=== PATIENT | female | born 1970 | race Caucasian/White ===

== ENCOUNTER 2025-07-27 01:54 | Emergency (ER) | payer OTHER, SELFPAY ==
--- OUTSIDE RECORDS SUMMARY | 2019-07-20 16:57 | XMS_ITS | Encounter Summary ---
Author Organization [facility] Address [address] [place] [address] Care Team Providers Care Almond Sorter Name Role Phone Pcp, No Primary Care Provider Unavailabl e Encounter Details Date Type Department Care Team (Late st Contact Info) Description 07/20/2019 4:57 PM EDT Hospital Encounter [facility] [address] [place] [id number] Amber Diaz APRN [address] [place] [address] Social History Tobacco Use Types Packs/Day Years Used Date Smoking Tobacco: Never Smokeless Tobacco: Never Alcohol Use Standard Drinks/Week Comments Never 0 (1 standard drink = 0.6 oz pur e alcohol) Comments No Sex and Gender Information Value Date Recorded Sex Assigned at Not on file Legal Sex Female 4:29 PM EDT Gender Identity Not on file Sexual Orientation Not on file Occupation Industry Job Start Date Job End Date Nurse Not on file Not on file Not on file COVID-19 Exposure Response Date Recorded In the last 10 days, have yo u been in contact with someone who was confirmed or suspected to have Coronavirus/COVID-19? No / Unsure 02/15/2023 9:24 AM EDT documented as of this encounter Plan of Treatment Not on file documented as of this encounter Procedures Procedure Name Priority Date/Time Associated Diagnosis Comments XR TOE (1ST) 2+ VIEWS-LEFT STAT 07/20/2019 5:03 PM EDT Cellulitis of great toe of left foot documented in this encounter Results * XR Toe (1st) 2+ views-Left (07/20/2019 5:03 PM EDT) Anatomical Region Laterality Modality Foot Left Computed Radiogr aphy 07/20/2019 5:08 PM EDT Impressions 07/20/2019 5:10 PM EDT No acute bony or articular abnormality. Narrative 07/20/2019 5:10 PM EDT COMPARISON(S): None. TECHNIQUE: 3 radiographic views of the left first toe were obtained. FINDINGS: BONES: No fracture. JOINTS: No dislocation. SOFT TISSUES: Punctate calcification medial to the first metatarsal head, likely sequela of prior injury, inflammation, or intervention. Procedure Note Benji Tran MD - 07/20/2019 COMPARISON(S): None. TECHNIQUE: 3 radiographic views of the left first toe were obtained. FINDINGS: BONES: No fracture. JOINTS: No dislocation. SOFT TISSUES: Punctate calcification medial to the first metatarsal head,likely sequela of prior injury, inflammation, or intervention. IMPRESSION: No acute bony or articular abnormality. Amber Diaz APRN IMG DIAGNOSTIC IMAGING ORDERAB LES Final Result documented in this encounter Visit Diagnoses Not on filedocumented in this encounter Care Teams Almond Sorter Relationship Specialty Start Date End Date Pcp, No PCP - General General Medicine 07/20/19 02/14/23 documented as of this encounter
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
[2025-07-27 01:59] VITALS: BP 138/80; PULSE 78; O2SAT 100
[2025-07-27 02:18] VITALS: BP 166/95; PULSE 73; RESP 16; TEMP 37.1; O2SAT 100; BMI 46.2
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
--- OUTSIDE RECORDS SUMMARY | 2025-07-27 03:22 | XMS_ITS | Clinical Summary ---
Author Organization [facility] Address [address] [place] [address] Care Team Providers Care Airport Location Manager Name Role Phone Eulalia Dela Cruz APRN Primary Care Provider [phone] Allergies Active Allergy Reactions Criticality Noted Date Comments Cephalexin Shortness Of Breath,Itching,Hives High 10/11/2016 Sulfamethoxazole-Trimethopr im Shortness Of Breath,Hives High 10/11/2016 Medications cetirizine (ZyrTEC) 10 MG tablet 3 Active cycloSPORINE (Restasis) 0.05 % ophthalmic emulsion 2 Active fluticasone (FloNASE) 50 mcg/spray nasal spray SHAKE LIQUID AND USE 2 SPRAYS IN EACH NOSTRIL IN THE MORNING 3 Active albuterol (PROVENTIL HFA; VENTOLIN HFA) 108 (90 Base) MCG/ACT inhaler INHALE 2 PUFFS BY MOUTH EVERY 4 HOURS NEEDED FOR WHEEZING OR SHORTNESS OF BREATH 2 Active Coenzyme Q10 (COQ-10 PO) Take by mouth. Act power cyanocobalamin (VITAMIN B-12) 250 MCG tablet Take by mouth. Active Calcium Carbonate-Vit D-Min (Caltrate 600+D Plus Minerals) 600-800 MG-UNIT Chew Tab Chew 1 tablet. 3 Active ascorbic acid (VITAMIN C) 500 MG tablet Take 1 tablet (500 mg total) by mouth daily. Active Glplytqi-Rju-Pj- FA (Pre-Dean Formula) Tab Take by mouth. Ac tive PANTOprazole (PROTONIX) 20 MG tablet Take 2 tablets (40 mg total) by mouth daily. Active MAGNESIUM PO Take by mouth. Ac tive [place]-3 Fatty Acids (OMEGA 3 PO) Take by mouth. 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 90 tablet 1 4 Active traMADol (ULTRAM) 50 MG tabletIndication s:Other chronic pain Take 1 tablet (50 mg total) by mouth 3 times daily (every 8 hours) as needed for severe pain. 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 She is making positive changes under his supervision. 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 CHARLIE on CPAP 01/20/2020 02/15/2023 Chronic pain of both knees 08/29/201902/15 Leg swelling 08/29/2019 02/15/2023 Resolved Problems Problem Noted Date Diagnosed Date Resolved Date Screening for colon cancer 06/03/2020 02/15/2023 0 06/30/2023 Overview (02/15/2023): Added automatically from request for surgery [id number] Added automatically from request for surgery [id number] Family History Medical History Relation Name Comments Diabetes type I Daughter Diabetes Father Cancer, uterine Mother Hypertension Mother Relation Name Status Comments Daughter Alive Father Mother Social History Tobacco Use Types Packs/Day Years Used Date Smoking Tobacco: Never Smokeless Tobacco: Never Tobacco Cessation:Counseling Given: Not Answered Alcohol Use Standard Drinks/Week Comments Never 0 [...] file Not on file Not on file Last Filed Vital Signs Vital Sign Reading Time Taken Comments Blood Pressure 108/71 08/23/2024 11:49 AM EDT Pulse 87 08/23/2024 11:49 AM EDT Temperature 36.1 C (97 F) 06/30/2023 3:38 PM EDT Respiratory Rate 16 08/23/2024 11:49 AM EDT Oxygen Saturation 97% 06/30/2023 3:38 PM EDT Inhaled Oxygen Concentration - - Weight 140 kg (308 lb) 08/23/2024 11:49 AM EDT Height 170.2 cm (5' 7 ) 08/23/2024 11:49 AM EDT Body Mass Index 48.24 08/23/2024 11:49 AM EDT Plan of Treatment Health Maintenance Due Date Last Done Comments Physical 1986 DTaP/Tdap/Td Vaccines (1 - Tdap) 1987 Hepatitis B Vaccines (1 of 3 - 19+ 3-dose series) 1987 Pap Smear (Ages 21-65) 1989 Mammogram 2008 Pneumococcal Vaccines 50+ (1 of 1 - PCV) 2018 Zoster (Shingles) Vaccine (1 of 2) 2018 FIT-Fecal Globin by Immunochemistry to Lab 10/02/2022 10/02/2021 (Previously Completed) Influenza Vaccine 06/13/2025 12/29/2022, , 09/01/2020 COVID-19 Vaccine ( - 2024-2 6 season) 2025 12/24/2021, 01/30/2021, 01/08/2021 HIV Screening Completed 11/15/2021 Hepatitis C Virus Screening Completed 12/14 (Previously Completed) Controlled Substance Agreeme nt Initial and Annual Review Discontinued 02/15/2023 Chronic Controlled Substance User PDMP Review Discontinued 08/23/2024, 08/16/2024, 05/30/2024, Additional history exists Insurance [facility] Care Teams Airport Location Manager Relationship Specialty Start Date End Date Eulalia Dela Cruz APRN [address] [place] [address] PCP - General Internal Medicine 02/15/23
--- OUTSIDE RECORDS SUMMARY | 2025-07-27 03:22 | XMS_ITS | Encounter Summary ---
Author Organization [facility] Address [address] [place] [address] Care Team Providers Care Functional Mental Disability Teacher Name Role Phone Eulalia Dela Cruz APRN Primary Care Provider Reason for Visit * Reason Comments Medication Refill Encounter Details Date Type Department Care Team (Late st Contact Info) Description 05/24/2023 Refill [facility] [address] [place] [address] Eulalia Dela Cruz APRN [address] [place] [address] Chronic pain of both knees (Primary Dx) Social History Tobacco Use Types Packs/Day Years Used Date Smoking Tobacco: Never Smokeless Tobacco: Never Alcohol Use Standard Drinks/Week Comments Never 0 (1 standard drink = 0.6 oz pur e alcohol) Comments Unknown Sex and Gender Information Value Date Recorded Sex Assigned at Not on file Legal Sex Female 4:29 PM EDT Gender Identity Not on file Sexual Orientation Not on file documented as of this encounter Plan of Treatment Not on file documented as of this encounter Visit Diagnoses Diagnosis Chronic pain of both knees- Primary documented in this encounter Care Teams Functional Mental Disability Teacher Relationship Specialty Start Date End Date Eulalia Dela Cruz APRN [address] [place] [address] PCP - General Internal Medicine 02/15/23 documented as of this encounter
--- OUTSIDE RECORDS SUMMARY | 2025-07-27 03:22 | XMS_ITS | Encounter Summary ---
Author Organization [facility] Address [address] [place] [address] Care Team Providers Care Contour Sander Name Role Phone Eulalia Dela Cruz APRN Primary Care Provider [phone] Reason for Visit * Reason Comments Medication Refill Encounter Details Date Type Department Care Team (Late st Contact Info) Description 08/31/2023 Refill [facility] [address] [place] [address] Eulalia Dela Cruz APRN [address] [place] [address] Chronic pain of both knees Social History Tobacco Use Types Packs/Day Years [...] file Not on file Not on file documented as of this encounter Plan of Treatment Not on file documented as of this encounter Visit Diagnoses Diagnosis Chronic pain of both knees documented in this encounter Care Teams Contour Sander Relationship Specialty Start Date End Date Eulalia Dela Cruz APRN [address] [place] [address] PCP - General Internal Medicine 02/15/23 documented as of this encounter
--- OUTSIDE RECORDS SUMMARY | 2025-07-27 03:22 | XMS_ITS | Clinical Summary ---
Author Organization [facility] Address [address] [place] [address] Care Team Providers Care Concrete Form Setter Name Role Phone Eulalia Dela Cruz APRN Primary Care Provider [phone] Allergies Active Allergy Reactions Criticality Noted Date Comments Cephalexin Itching,Shortness Of Breath High 07/20/2019 Sulfamethoxazole-Trimethopr im Shortness Of Breath High 07/20/2019 Medications Medication Sig Dispensed Refills Start Date End Date Status HYDROmorphone (Dilaudid) 4 MG tablet Take 0.5 tablets (2 mg total) by mouth every 4 (four) hours as needed (pain not controlled with Tylenol). 12 tablet 0 07/06/2023 Active acetaminophen (TYLENOL PEDIATRIC) 160 MG/5ML suspension Take 1000mg (31ml) every 8 hours x 5 days; after 5 days, take 1000mg (31ml) every 8 hours as needed for continued discomfort 470 mL 1 07/06/2023 Active ondansetron (Zofran) 4 MG tablet Take 1 tablet (4 mg total) by mouth every 8 (eight) hours as needed for nausea. 20 tablet 0 07/06/2023 Active Calcium Carbonate-Vit D-Min (Calcium 600+D Plus Minerals) 600-400 MG-UNIT CHEW Chew 1 tablet by mouth 2 (two) times a day. 0 Active vitamin B-12 (CYANOCOBALAMIN) 500 MCG tablet Take 1 tablet (500 mcg total) by mouth daily. 0 Active levothyroxine (SYNTHROID) tablet 112 mcg Take 1 tablet (112 mcg total) by mouth daily. 0 Active liothyronine (CYTOMEL) tablet 5 mcgIndications:Take in the morning. Take 1 tablet (5 mcg total) by mouth daily. 0 Active liothyronine (CYTOMEL) tablet 5 mcgIndications:Take in the afternoon Take 0.5 tablets (2.5 mcg total) by mouth daily. 0 Active Pantoprazole Sodium (PROTONIX PO) Take 40 mg by mouth daily. 0 Active Vit-Fe Fumarate-FA ( 19) 29-1 MG CHEW Chew 1 tablet by mouth. 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 CHARLIE on CPAP 01/20/2020 Class 3 severe obesity due t o excess calories without serious comorbidity with body mass index (BMI) of 50.0 to 59.9 in adult 11/07/2019 Chronic pain of both knees 08/29/2019 Leg swelling 08/29/2019 Family History Medical History Relation Name Comments No Sig Med Hx Daughter Diabetes Father Hypertension Father Cancer Mother No Sig Med Hx Sister No Sig Med Hx Son 1 Colon cancer Neg Hx Colon polyps Neg Hx Relation Name Status Comments Brother Alive Daughter Alive Father Mother Alive Sister Alive Son 1 Alive Son 2 Alive Social History Tobacco Use Types Packs/Day Years Used Date Smoking Tobacco: Former Cigarettes Q uit: 08/20/1999 Smokeless Tobacco: Never Tobacco Cessation:Counseling Given: Not Answered Alcohol Use Standard Drinks/Week Comments No 0 (1 standard drink = 0.6 oz pur e alcohol) Sex and Gender Information Value Date Recorded Sex Assigned at Female 09/26/2019 4:50 PM EST Gender Identity Female 09/26/2019 4:50 PM EST Sexual Orientation Not on file Job Start Date Occupation Industry Not on file Not on file Not on file Last Filed Vital Signs Vital Sign Reading Time Taken Comments Blood Pressure 141/72 07/07/2023 3:51 PM EDT Pulse 52 07/07/2023 3:51 PM EDT Temperature 36.9 C (98.5 F) 07/07/2023 3:51 PM EDT Respiratory Rate 18 07/07/2023 3:51 PM EDT Oxygen Saturation 98% 07/07/2023 3:51 PM EDT Inhaled Oxygen Concentration - - Weight 148.9 kg (328 lb 4.8 oz) 03/25/2024 3:54 PM EDT Height 170.2 cm (5' 7 ) 03/25/2024 3:54 PM EDT Body Mass Index 51.42 03/25/2024 3:54 PM EDT Plan of Treatment Health Maintenance Due Date Last Done Comments Depression Screening 1980 Preventative Health Evaluation 1986 Cervical Cancer Screening (Pap Smear) 1989 Colon Cancer Screening (Colonoscopy) 2013 Breast Cancer Screening (Mammogram) 2018 Shingrix-Zoster Vaccine (1 of 2) 2018 BMI Counseling 01/28/2023 01/28/2022, 12/14, 04/21/2020, Additional history exists COVID-19 Vaccine ( season) 2025 12/24/2021, 01/30/2021, 01/08/2021 Influenza Vaccine (#1) 2025 3, 09/01/2020, 09/01/2020 DTap / Tdap / Td (3 - Td or Tdap) 12/29/2032 12/29/2022, 08/01/2012 Pneumococcal Vaccine Aged Out 2009 No long er eligible based on patient's age to complete this topic Hepatitis B Vaccines Completed 02/18/2013, 09/19/2012, 08/23/2012 Hepatitis C Screening Completed 12/29/2022 RSV Ped < 20 months Aged Out No longe r eligible based on patient's age to complete this topic Advance Directives For more information, please contact: [phone] Latest Code Status on File Code Status Date Activated Date Inactivated Comments Code A- Full Code 07/06/2023 10:31 AM 07/08/2023 12:48 A M This code status was ascertained in the following way: discussion with patient . Code Status History Code Status Date Activated Date Inactivated Comments Code A- Full Code 07/06/2023 10:27 AM 07/06/2023 10:31 A M This code status was ascertained in the following way: discussion with patient . Full Code 02/24/2023 9:47 AM 02/24/2023 6:19 PM This code status was ascertained in the following way: discussion with patient . Care Teams Concrete Form Setter Relationship Specialty Start Date End Date Eulalia Dela Cruz APRN [address] [facility] [address] [place] [address] PCP - General Environmental Protection Geologist 06/20/23
--- OUTSIDE RECORDS SUMMARY | 2025-07-27 03:22 | XMS_ITS | Encounter Summary ---
Author Organization [facility] Address [address] [place] [address] Care Team Providers Care Mandrel Puller Name Role Phone Eulalia Dela Cruz APRN Primary Care Provider [phone] Encounter Details Date Type Department Care Team (Late st Contact Info) Description 06/02/[address] [phone] Eulalia Dela Cruz APRN [address] [place] [id number] Social History Tobacco Use Types Packs/Day Years [...] on file documented as of this encounter Miscellaneous Notes * Telephone Encounter - Venita Livingston - 06/02/2023 2:27 PM EDT Patient called she would like to have the rx for celebrex to be sent over for a 90 supply and not 30 due to insurance will cover the rx at 100% if written for 90 supply. documented in this encounter Plan of Treatment Not on file documented as of this encounter Visit Diagnoses Not on filedocumented in this encounter Care Teams Mandrel Puller Relationship Specialty Start Date End Date Eulalia Dela Cruz, JOHNNY [address] [place] [address] PCP - General Internal Medicine 02/15/23 documented as of this encounter
--- OUTSIDE RECORDS SUMMARY | 2025-07-27 03:22 | XMS_ITS | Encounter Summary ---
Author Organization [facility] Address [address] [place] [address] Care Team Providers Care Mobile Home Mechanic Name Role Phone Eulalia Dela Cruz APRN Primary Care Provider [phone] Reason for Visit * Reason Comments Medication Refill Encounter Details Date Type Department Care Team (Late st Contact Info) Description 05/26/2023 Refill [facility] [address] [place] [address] Eulalia Dela Cruz APRN [address] [place] [address] Chronic pain of both knees (Primary Dx) [...] Primary documented in this encounter Care Teams Mobile Home Mechanic Relationship Specialty Start Date End Date Eulalia Dela Cruz APRN [address] [place] [address] PCP - General Internal Medicine 02/15/23 documented as of this encounter
--- OUTSIDE RECORDS SUMMARY | 2025-07-27 03:22 | XMS_ITS | Encounter Summary ---
Author Organization [facility] Address [address] [place] [address] Care Team Providers Care Assessment Rn Name Role Phone Eulalia Dela Cruz APRN Primary Care Provider [phone] Encounter Details Date Type Department Care Team (Late st Contact Info) Description 05/29/[address] [phone] Eulalia Dela Cruz APRN [address] [place] [phone] Social History Tobacco Use Types Packs/Day Years [...] encounter Miscellaneous Notes * Telephone Encounter - Linda Rome LPN - 05/29/2023 1:21 PM EDT This medication was denied by another office and routed to [facility]. After reviewing, RX request was sent to Eulalia Dela Cruz, pending approval * Telephone Encounter - Venita Livingston - 05/29/2023 12:42 PM EDT Patient called to find out status on the celebrex order. States that the pharmacy said it was denied. Please contact patient. documented in this encounter Plan of Treatment Not on file documented as of this encounter Visit Diagnoses Not on filedocumented in this encounter Care Teams Assessment Rn Relationship Specialty Start Date End Date Eulalia Dela Cruz, VETERINARY SURGEON [address] [place] [id number] PCP - General Internal Medicine 02/15/23 documented as of this encounter
--- OUTSIDE RECORDS SUMMARY | 2025-07-27 03:22 | XMS_ITS | Encounter Summary ---
Author Organization [facility] Address [address] [place] [address] Care Team Providers Care Multicultural Manager Name Role Phone Pcp, hSira Primary Care Provider Eulalia Aguero UNION REPRESENTATIVE Primary Care Provider [phone] Encounter Details Date Type Department Care Team (Late st Contact Info) Description 02/10/2023 Scanned Document [facility] SCAN Family Medicine, Scan Social History Tobacco Use Types Packs/Day Years Used Date Smoking Tobacco: Never Assessed Comments Unknown Sex and Gender Information Value Date Recorded Sex Assigned at Not on file Legal Sex Female 4:29 PM EDT Gender Identity Not on file Sexual Orientation Not on file documented as of this encounter Plan of Treatment Not on file documented as of this encounter Visit Diagnoses Not on filedocumented in this encounter Care Teams Multicultural Manager Relationship Specialty Start Date End Date Pcp, Shira PCP - General General Medicine 07/20/19 02/14/23 Eulalia Dela Cruz, UNION REPRESENTATIVE [address] [place] [address] PCP - General Internal Medicine 02/15/23 documented as of this encounter
--- OUTSIDE RECORDS SUMMARY | 2025-07-27 03:22 | XMS_ITS | Clinical Summary ---
Author Organization [facility] Address [address] [place] [address] Care Team Providers Care Traffic Representative Name Role Phone Alexander Hurst Unavailable Unavailable Pcp, No MD Primary Care Provider Unavailabl e Allergies Active Allergy Reactions Criticality Noted Date Comments Cephalexin Itching,Shortness of breath High 07/20/2019 Sulfamethoxazole-Trimethopr im Shortness of breath High 07/20/2019 Medications levothyroxine (SYNTHROID) 137 mcg tablet Take 137 mcg by mouth. 0 Active albuterol HFA 90 mcg/actuation inhaler INHALE 2 PUFFS BY MOUTH EVERY 4 HOURS NEEDED FOR WHEEZING OR SHORTNESS OF BREATH 3 each 3 2 Active Restasis 0.05 % ophthalmic emulsion 2 Active celecoxib (CeleBREX) 200 mg capsuleIndications :Primary osteoarthritis of both knees TAKE 1 CAPSULE(200 MG) BY MOUTH DAILY 90 capsule 3 2 Active traMADoL (ULTRAM) 50 mg tabletIndications: Primary osteoarthritis of both knees,Chronic pain of both knees TAKE 1 TABLET(50 MG) BY MOUTH EVERY 6 HOURS NEEDED FOR SEVERE PAIN. MAX DAILY AMOUNT: 200 MG 120 tablet 2 Active fluticasone propionate (FLONASE) 50 mcg/actuation nasal sprayIndications:N on-seasonal allergic rhinitis, unspecified trigger Administer 2 sprays into each nostril in the morning. 16 g 5 3 Active cetirizine (ZyrTEC) 10 mg tabletIndications: Non-seasonal allergic rhinitis, unspecified trigger Take 1 tablet (10 mg total) by mouth in the morning. Take before bedtime.. 90 tablet 3 3 Active semaglutide, weight loss, (Wegovy) 1.7 mg/0.75 mL pen injectorIndication s:Class 3 severe obesity due to excess calories without serious comorbidity with body mass index (BMI) of 50.0 to 59.9 in adult ([facility]) Inject 1.7 mg under the skin every 7 days. 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 CHARLIE on CPAP 01/20/2020 Class 3 severe obesity due t o excess calories without serious comorbidity with body mass index (BMI) of 50.0 to 59.9 in adult 11/07/2019 Assessment & Plan (01/02/2023 11:48 AM EST): - Patient reports that she is working with a nutrition head coach. She is making positive changes under his supervision. Chronic pain of both knees 08/29/2019 Leg swelling 08/29/2019 Immunizations Immunization Administration Dates Next Due COVID-19 MRNA (MODERNA) 12/24/2021 COVID-19 mRNA (PFIZER) 01/30/2021,01/08/2021 Hep B, Unspecified 08/23/2012 Hepatitis B 02/18/2013,09/19/2012 Influenza, Quadrivalent 12/29/2022,09/01/2020 PPD Test 07/06/2021, 1,10/14/2020,09/22/20 Pneumococcal Polysaccharide PCV-23 2009 Tdap 12/29/2022,08/01/2012 Family History Medical History Relation Comments Diabetes type II Father Drug abuse Father Uterine cancer Mother Diabetes type II Paternal Grandmother Relation Status Comments Father Maternal Grandfather Maternal Grandmother Mother Paternal Grandfather Paternal Grandmother Social History Tobacco Use Types Packs/Day Years Used Date Smoking Tobacco: Former Cigarettes 1 10 0 11/13/1988 - 11/13/1998 Smokeless Tobacco: Never Comments:quit years ago Alcohol Use Standard Drinks/Week Comments Not Currently 0 (1 standard drink = 0.6 oz pur e alcohol) PHQ-2 Answer Date Recorded Patient Health Questionnaire-2 Score 0 12/29/2022 Comments No Sex and Gender Information Value Date Recorded Sex Assigned at Female 01/07/2021 11:52 AM EST Legal Sex Female 10:14 AM EDT Gender Identity Female 01/07/2021 11:52 AM EST Sexual Orientation Straight 01/07/2021 11 :52 AM EST 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 Not on file Not on file Not on file Last Filed Vital Signs Vital Sign Reading Time Taken Comments Blood Pressure 125/84 12/29/2022 8:43 AM EST Pulse 78 12/29/2022 8:43 AM EST Temperature 36.5 C (97.7 F) 12/29/2022 8:43 AM EST Respiratory Rate 18 04/18/2022 1:30 PM EDT Oxygen Saturation 97% 12/29/2022 8:43 AM EST Inhaled Oxygen Concentration - - Weight 177 kg (390 lb) 12/29/2022 8:43 AM EST Height 172.1 cm (5' 7.75 ) 12/29/2022 8:43 AM ES T Body Mass Index 59.74 12/29/2022 8:43 AM EST Plan of Treatment Health Maintenance Due Date Last Done Comments Breast Cancer Screening 1968 CT Colonography 1968 Colonoscopy 1968 FIT-DNA (Cologuard) 1968 FOBT 1968 Flex Sigmoidoscopy - 5y 1968 Pap Smear 1989 Cervical Cancer Screening 1998 HPV/Cotest 1998 Pneumococcal Vaccine, 50+ Years (2 of 2 - PCV) 2018 2009 Zoster Vaccines (1 of 2) 2018 Colorectal Cancer Screening 10/02/2022 FIT 10/02/2022 10/02/2021 COVID-19 Vaccine (4 - 2024-2 6 season) 2025 12/24/2021, 01/30/2021, 01/08/2021 Influenza Vaccine (#1) 2025 3, 09/01/2020 DTaP,Tdap,and Td Vaccines (3 - Td or Tdap) 12/29/2032 12/29/2022, 08/01/2012 Hepatitis B Vaccines Completed 02/18/2013, 09/19/2012, 08/23/2012 HIV Screening Completed 11/15/2021, 06/26/2021 Hepatitis C Screening Completed 12/29/2022 HPV Vaccines Aged Out No longer eligi ble based on patient's age to complete this topic Hepatitis A Vaccines Aged Out No long er eligible based on patient's age to complete this topic MMR Vaccines Aged Out No longer eligi ble based on patient's age to complete this topic Meningococcal Vaccine Aged Out No karey deepti eligible based on patient's age to complete this topic Procedures Procedure Name Priority Date/Time Associated Diagnosis Comments HEPATITIS C ANTIBODY Routine 12/29/2022 9:31 AM EST Need for hepatitis C screening test HIV COMBO ANTIGEN/ANTIBODY Routine 11/15/2021 4:22 PM EST Screen for STD (sexually transmitted disease) FECAL IMMUNOCHEMICAL HB Routine 10/02/2021 9:51 AM EST Colon cancer screening from Last 3 Months or Most Recently Relevant to Health Maintenance Results * Hepatitis C antibody (12/29/2022 9:31 AM EST) Hepatitis C Antibody Negative Negative 12/29/2022 2:07 PM EST [facility] Comment:Anti-HCV (HCVAb) Not Detected. Patient is presumed not to be infected with HCV. The possibility of exposure to HCV cannot be excluded. Blood Venous blood specimen / Unknown Venipuncture / Unknown 12/29/2022 9:31 AM EST 12/29/2022 9:31 AM EST us Aaliyah Welch APRN LAB BLOOD ORDERABLES NO STAT Final Result [facility] [address] [place] [address], [place] [phone] * HIV combo antigen/antibody (11/15/2021 4:22 PM EST) HIV Combo AB/AG Negative Negative 11/15/2021 6:51 PM EST [facility] Blood Venous blood specimen / Unknown Venipuncture / Unknown 11/15/2021 4:22 PM EST 11/15/2021 4:22 PM EST [facility] - 11/15/2021 6:51 PM EST This test is a 4th generation HIV Antigen-Antibody Combination assay, using a chemiluminescent microparticle immunoassay, for the simultaneous qualitative detection of human immuno- deficiency virus (HIV) p24 antigen and antibodies to HIV type 1 (HIV-1) and/or HIV type 2 (HIV-2) in human serum or plasma. The Feliz Boom Man HIV Ag/Ab Combo assay is intended to be used as an aid in the diagnosis of HIV-1 and/or HIV-2 infection, including acute or primary HIV-1 infection. Initially-positive tests are repeated in duplicate. Repeat-positive tests will be confirmed for HIV by a HIV-1/HIV-2 rapid supplemental/ differentiation antibody assay. This testing algorithm is in line with the current CDC recommendations. Adonis Norton LAB BLOOD ORDERABLES NO STAT Fin al Result [facility] [address] [place] [address], [place] [phone] * Fecal immunochemical Hb (10/02/2021 9:51 AM EST) Fecal Immunochemical Hb <75 ng/mL 10/06/2021 2:04 PM EST [facility] Comment:Positive result >=10 0 ng/ml: Suggest further evaluation if clinically indicated. This test has 97% specificity for detection of lower gastrointestinal bleeding in colorectal cancer. This test will not detect upper gastrointestinal bleeding. Stool specimen (specimen) Anal structure / Unknown Non-blood Collection / Unknown 10/02/2021 9:51 AM EST 10/02/2021 9:51 AM EST Adonis Norton LAB BODY FLUIDS AND STOOLS ORDER CARMEN Final Result [facility] [address] [place] [address], [place] [phone] from Last 3 Months or Most Recently Relevant to Health Maintenance Insurance MEDICAID [place] A Care Teams Traffic Representative Relationship Specialty Start Date End Date PcpShira MD [address] [place] [address] PCP - General Internal Medicine 06/13/23 Alexander Hurst Endocrinology 10/29/19
--- OUTSIDE RECORDS SUMMARY | 2025-07-27 03:22 | XMS_ITS ---
Author Name [facility] Organization Unknown History of Medication Use Medication Directions Dispensed Refills Start Date End Date Stat phentermine (Adipex-P) 37.5 mg tablet Take 1 tablet (37.5 mg total) by mouth 1 (one) time each day before breakfast. Max Daily Amount: 37.5 mg 06/09/2025 active Victoza 18 MG/3ML Subcutaneous Solution Pen-injector Victoza 18 MG/3ML Subcutaneous Solution Pen-injector QTY: 9 Days: 48 Refills: 0 Written: 04/17/23 Patient Instructions: 04/17/2023 active Fluticasone Propionate 50 MCG/ACT Nasal Suspension Fluticasone Propionate 50 MCG/ACT Nasal Suspension QTY: 48 Days: 90 Refills: 0 Written: 03/30/23 Patient Instructions: 03/30/2023 active Celecoxib 200 MG Oral Capsule Celecoxib 200 MG Oral Capsule QTY: 90 capsule Days: 90 Refills: 0 Written: 02/17/23 Patient Instructions: 02/17/2023 active Ozempic (1 MG/DOSE) 4 MG/3ML Subcutaneous Solution Pen-injector Ozempic (1 MG/DOSE) 4 MG/3ML Subcutaneous Solution Pen-injector QTY: 3 Days: 28 Refills: 0 Written: 12/15/22 Patient Instructions: 12/15/2022 active hydroquinone 4 % cream Apply topically 2 (two) times a day. For dark spots 08/16/2022 09/16/2022 active celecoxib (CeleBREX) 200 mg capsule TAKE 1 CAPSULE(200 MG) BY MOUTH DAILY 06/06/2022 active traMADoL (ULTRAM) 50 mg tablet TAKE 1 TABLET(50 MG) BY MOUTH EVERY 6 HOURS NEEDED FOR SEVERE PAIN. MAX DAILY AMOUNT: 200 MG 05/18/2022 10/28/2022 active traMADoL (ULTRAM) 50 mg tablet Take 1 tablet (50 mg total) by mouth every 6 (six) hours as needed for severe pain (8-10). Max Daily Amount: 200 mg 03/24/2022 05/18/2022 aborted albuterol HFA 90 mcg/actuation inhaler INHALE 2 PUFFS BY MOUTH EVERY 4 HOURS NEEDED FOR WHEEZING OR SHORTNESS OF BREATH 03/01/2022 active traMADol HCl 50 MG Oral Tablet traMADol HCl 50 MG Oral Tablet QTY: 90 tablet Days: 30 Refills: 0 Written: 02/15/23 Patient Instructions: 11/02/2021 05/29/2023 active levothyroxine (SYNTHROID) tablet 112 mcg Take 1 tablet (112 mcg total) by mouth daily. active liothyronine (CYTOMEL) tablet 5 mcg Take 0.5 tablets (2.5 mcg total) by mouth daily. active Pantoprazole Sodium (PROTONIX PO) Take 40 mg by mouth daily. active Allergies Allergen Reaction Severity Comment Documented Date Source Statu s SULFAMETHOXAZOLE-TR IMETHOPRIM SHORTNESS OF BREATH 07/20/2019 [facility] active BACTRIM [facility] CEPHALEXIN SHORTNESS OF BREATH [facility] KEFLEX [facility] Problems Problem Status Onset Date Problem Type Date of Resolution Source Bariatric surgery status active EncounterDiagnosisAct [facility] Other specified counseling active 2020-06-03 ProblemAct [facility] Chronic pain of both knees active 2019-08-29 ProblemAct [facility] Leg swelling active 2019-08-29 ProblemAct [facility] EMG Morbid obesity active 2023-07-06 ProblemAct [facility] Adult BMI 50.0-59.9 kg/sq m active 2020-05-05 ProblemAct [facility] 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 active 2020-01-20 ProblemAct [facility] Screening for colon cancer active 2020-06-03 ProblemAct [facility] CHARLIE on CPAP active 2020-01-20 ProblemAct [facility] Sleep apnea (disorder) active 2021-11-02 ProblemAct [facility] Localized, primary osteoarthritis (disorder) active 2021-11-02 ProblemAct [facility] Hypothyroidism (disorder) active 2021-11-02 ProblemAct [facility] Hypertensive disorder, systemic arterial (disorder) active ProblemAct [facility] Localized, primary osteoarthritis (disorder) active 2022-11-03 ProblemAct [facility] Morbid obesity (disorder) active ProblemAct [facility] Chronic liver disease (disorder) active 2021-11-02 ProblemAct [facility] Anxiety disorder (disorder) active 2021-11-02 ProblemAct [facility] Risk: Fibromyalgia active 2024-06-14 ProblemAct [facility] Class 3 severe obesity due to excess calories without serious comorbidity with body mass index (BMI) of 50.0 to 59.9 in adult active 2019-11-07 ProblemAct [facility] Morbid obesity due to excess calories active 2020-05-05 ProblemAct [facility] Immunizations Vaccine Date Source Lot Number Status Influenza, Quadrivalent 12/29/2022 [facility] [id number] c ompleted Tdap 12/29/2022 [facility] [id number] completed COVID-19 MRNA (MODERNA) 12/24/2021 [facility] c ompleted PPD Test 07/06/2021 [facility] [id number] completed PPD Test 06/25/2021 [facility] [id number] completed Pfizer SARS-CoV-2 COVID-19, mRNA, LNP-S, preservative free 01/30/2021 [facility] [id number] completed Pfizer SARS-CoV-2 COVID-19, mRNA, LNP-S, preservative free 01/30/2021 [facility] [id number] completed Pfizer SARS-CoV-2 COVID-19, mRNA, LNP-S, preservative free 01/08/2021 [facility] [id number] completed Pfizer SARS-CoV-2 COVID-19, mRNA, LNP-S, preservative free 01/08/2021 [facility] [id number] completed PPD Test 10/14/2020 [facility] [id number] completed PPD Test 09/22/2020 [facility] [id number] completed Influenza, Quadrivalent 09/01/2020 [facility] [id number] c ompleted Hepatitis B 02/18/2013 [facility] completed Hepatitis B 09/19/2012 [facility] completed Hep B, Unspecified 08/23/2012 [facility] comple yudith Tdap 08/01/2012 [facility] completed Pneumococcal Polysaccharide PCV-23 2009 [facility] completed Encounters Encounter Type Encounter Reason Primary Diagnosis Location Date Ambulatory [facility] 07/21/2025 Ambulatory [facility] 06/09/2025 Ambulatory Bilateral primary osteoarthritis of knee Bilateral primary osteoarthritis of knee [facility] 03/20/2025 Ambulatory Bilateral primary osteoarthritis of knee Bilateral primary osteoarthritis of knee [facility] 02/05/2025 Ambulatory Pain in unspecified joint Pain in unspecified joint [facility] 08/23/2024 Ambulatory Bilateral primary osteoarthritis of knee Bilateral primary osteoarthritis of knee [facility] 08/20/2024 Ambulatory Unilateral primary osteoarthritis, right knee Unilateral primary osteoarthritis, right knee [facility] 06/14/2024 Inpatient Morbid (severe) obesity due to excess calories Morbid (severe) obesity due to excess calories [facility] 07/06/2023 Ambulatory Encounter for other preprocedural examination Encounter for other preprocedural examination [facility] 06/30/2023 Ambulatory Other specified hypothyroidism [facility] 05/31/2023 Ambulatory Morbid (severe) obesity due to excess calories [facility] 05/10/2023 Ambulatory Pain in right knee [facility] 02/15/2023 Ambulatory Lymphocytosis (symptomatic) [facility] 01/12/2023 Ambulatory Encounter for screening for diseases of the blood and blood-forming organs and certain disorders involving the immune mechanism [facility] 12/29/2022 Ambulatory Encounter for immunization [facility] 12/29/2022 Ambulatory [facility] 12/23/2022 Ambulatory [facility] 08/16/2022 Emergency Pain in left knee [facility] 04/18 Ambulatory Morbid (severe) obesity due to excess calories [facility] 04/06/2022 Ambulatory Other fatigue [facility] 2 Ambulatory Encounter for screening for infections with a predominantly sexual mode of transmission [facility] 11/15/2021 Ambulatory Other fatigue [facility] 2 Ambulatory Encounter for screening for malignant neoplasm of colon [facility] 10/02/2021 Ambulatory Acute maxillary sinusitis, unspecified [facility] 09/20/2021 Care Team Organization Name Specialty Phone Email Start Date End Da te [facility] 06/10/2025 [facility] 06/09/2025 [facility] 03/26/2025 025 [facility] 06/14/2024 [facility] 12/03/2023 [facility] EULALIA DELA CRUZ Primary Care 06/30/2023 01/29/2025 [facility] 06/23/2023 [facility] Primary Care 05/10/2023 05/10/2023 [facility] PCP,No Primary Care 02/15/2023 01/29/2025 [facility] Primary Care 02/15/2023 06/14/2023 [facility] 09/14/2022 07/01/2024 [facility] Adonis Norton Primary Care [facility] ADONIS NORTON Primary Care 04/18/2022 [facility] HALIMA MILAN Primary Care 11/15/2021 [facility]18[facility]2022 [facility] 07/30/2021 07/01/2024 [facility] NO PCP Primary Care 07/20/2019 [facility]
--- OUTSIDE RECORDS SUMMARY | 2025-07-27 03:22 | XMS_ITS | Clinical Summary ---
Author Organization [facility] up Address [address] [place] [address] Phone Care Team Providers Care Anesthesiologist Physician Name Role Phone Eulalia Dela Cruz KI Primary Care Provider [phone] Medications phentermine (Adipex-P) 37.5 mg tablet Take 1 tablet (37.5 mg total) by mouth 1 (one) time each day before breakfast. Max Daily Amount: 37.5 mg 30 each 06/09/2025 Active phentermine (Adipex-P) 37.5 mg tablet Take 1 tablet (37.5 mg total) by mouth 1 (one) time each day before breakfast. Max Daily Amount: 37.5 mg 60 tablet 07/21/2025 Active Encounters Date Type Department Care Team Description 07/21/2025 5:45 PM EDT Office Visit Bariatric Surgery - [place] [address] [place] [address] Juanjo Bender MD Bariatric surgery status (Primary Dx) 06/09/2025 5:15 PM EDT Office Visit Bariatric Surgery - [place] [address] [place] [address] Juanjo Bender MD Bariatric surgery status (Primary Dx) 06/09/2025 Telephone Bariatric Surgery - [address] [address] Guillermo Pearson MA from Last 3 Months Immunizations Name Administration Dates Next Due Pfizer SARS-CoV-2 COVID-19, mRNA, LNP-S, preservative free 01/30/2021,01/08/2021 Surgical History Surgery Date Site/Laterality Comments KNEE CARTILAGE SURGERY Right PROCEDURE:KNEE CARTILAGE SURGERY SECTION 2001 PROCEDURE: SECTION SECTION 2004 PROCEDURE: SECTION UPPER GASTROINTESTINAL ENDOSCOPY 02/24/2023 N/A PROCEDURE:UPPER GASTROINTESTINAL ENDOSCOPY;COMMENT:Procedure: UPPER ENDOSCOPY-EGD; Surgeon: James Kang MD; Location: [facility]; Service: Bariatrics; Laterality: N/A; 20 MIN BMI 59 SLEEVE GASTROPLASTY 07/06/2023 N/A PROCEDURE:SLEEVE GASTROPLASTY;COMMENT:Procedur e: ROBOTIC SLEEVE GASTRECTOMY; Surgeon: Juanjo Bender MD; Location: [facility]; Service: Bariatrics; Laterality: N/A; Medical History Medical History Date Comments Disease of thyroid gland DX:Dise ase of thyroid gland Sleep apnea DX:Sleep apnea;C OMMENT:compliant with cpap Thyroid disease DX:Thyroid disea se Arthritis DX:Arthritis Joint pain DX:Joint pain Joint swelling DX:Joint swellin g Stiffness in joint DX:Stiffness in joint Seasonal allergies DX:Seasonal a llergies Urinary urgency DX:Urinary urgen cy Osteoarthritis DX:Osteoarthriti s Dry eye DX:Dry eye BOWLES (dyspnea on exertion) DX:BOWLES (dyspnea on exertion) Anxiety DX:Anxiety Hypothyroidism DX:Hypothyroidis m Ear fullness DX:Ear fullness; COMMENT:prone to ear infections 02/2023 Family History Medical History Relation Name Comments No Known Problems Daughter Diabetes Father Hypertension Father Cancer Mother No Known Problems Sister No Known Problems Son 1 Colon cancer Neg Hx Colon polyps Neg Hx Relation Name Status Comments Brother Alive Daughter Alive Father Mother Alive Sister Alive Son 1 Alive Son 2 Alive Social History Tobacco Use Types Packs/Day Years Used Date Smoking Tobacco: Former Cigarettes Q uit: 08/20/1999 Smokeless Tobacco: Never Alcohol Use Standard Drinks/Week Comments No 0 (1 standard drink = 0.6 oz pur e alcohol) Comments Unknown Sex and Gender Information Value Date Recorded Sex Assigned at Not on file Legal Sex Female 6:51 PM EST Gender Identity Not on file Sexual Orientation Not on file Obstetrics History Last Filed Vital Signs Vital Sign Reading Time Taken Comments Blood Pressure 143/83 05/22/2023 9:27 AM EDT Sitting Right arm Pulse 83 05/22/2023 9:27 AM EDT Temperature - - Respiratory Rate - - Oxygen Saturation - - Inhaled Oxygen Concentration - - Weight 134 kg (295 lb 11.2 oz) 07/21/2025 5:58 PM EDT Height 170.2 cm (5' 7 ) 07/21/2025 5:58 PM EDT Body Mass Index 46.31 07/21/2025 5:58 PM EDT Plan of Treatment Upcoming Encounters Date Type Department Care Team (Late st Contact Info) Description 09/22/2025 5:45 PM EST Office Visit Bariatric Surgery - [place] [address] [place] [address] Juanjo Bender MD [address] [place] [address] Health Maintenance Due Date Last Done Comments Breast Cancer Screening 1968 Cervical Cancer Screening: P ap Smear 1989 Pneumococcal Vaccine: 50+ Years (2 of 2 - PCV) 2010 2009 Zoster Vaccines (1 of 2) 2018 Colorectal Cancer Screening: Colonoscopy 10/15/2022 HIV Screening 10/15/2022 Social Influencers of Health Screening 10/15/2022 Depression Screening 11/13/2024 COVID-19 Vaccine (4 - 2024-2 6 season) 2025 12/24/2021, 01/30/2021, 01/08/2021 Influenza Vaccine (#1) 2025 3, 09/01/2020 Cholesterol Screening (Lipid Panel) 06/23/2030 06/23/2025 DTaP,Tdap,and Td Vaccines (3 - Td or Tdap) 12/29/2032 12/29/2022, 08/01/2012 Hepatitis B Vaccines Completed 02/18/2013, 09/19/2012, 08/23/2012 Hepatitis C Screening Completed 12/29/2022 HIB Vaccines Aged Out No longer eligi ble based on patient's age to complete this topic HPV Vaccines Aged Out No longer eligi ble based on patient's age to complete this topic Hepatitis A Vaccines Aged Out No long er eligible based on patient's age to complete this topic IPV Vaccines Aged Out No longer eligi ble based on patient's age to complete this topic MMR Vaccines Aged Out No longer eligi ble based on patient's age to complete this topic Meningococcal ACWY Vaccine Aged Out N o longer eligible based on patient's age to complete this topic Meningococcal B Vaccine Aged Out No l onger eligible based on patient's age to complete this topic RSV Immunization Patients Under 20 months Aged Out No longer eligible b ased on patient's age to complete this topic Varicella Vaccines Aged Out No longer eligible based on patient's age to complete this topic Procedures Procedure Name Priority Date/Time Associated Diagnosis Comments CBC WITH AUTO DIFFERENTIAL Routine 06/23/2025 3:18 PM EDT Other hemoglobinopathies ([facility] V24) Encounter for screening for diabetes mellitus Other iron deficiency anemias Vitamin deficiency, unspecified Vitamin D deficiency, unspecified Disorder of thyroid, unspecified Disorder of lipoprotein metabolism, unspecified Morbid (severe) obesity due to excess calories ([facility] V24, [facility] V28) Bariatric surgery status LIPID PANEL WITH REFLEX TO DIRECT LDL Routine 06/23/2025 3:18 PM EDT Other hemoglobinopathies ([facility] V24) Encounter for screening for diabetes mellitus Other iron deficiency anemias Vitamin deficiency, unspecified Vitamin D deficiency, unspecified Disorder of thyroid, unspecified Disorder of lipoprotein metabolism, unspecified Morbid (severe) obesity due to excess calories ([facility] V24, [facility] V28) Bariatric surgery status THYROID STIMULATING HORMONE Routine 06/23/2025 3:18 PM EDT Other hemoglobinopathies ([facility] V24) Encounter for screening for diabetes mellitus Other iron deficiency anemias Vitamin deficiency, unspecified Vitamin D deficiency, unspecified Disorder of thyroid, unspecified Disorder of lipoprotein metabolism, unspecified Morbid (severe) obesity due to excess calories ([facility] V24, [facility] V28) Bariatric surgery status THYROXINE FREE Routine 06/23/2025 3:18 PM EDT Other hemoglobinopathies ([facility] V24) Encounter for screening for diabetes mellitus Other iron deficiency anemias Vitamin deficiency, unspecified Vitamin D deficiency, unspecified Disorder of thyroid, unspecified Disorder of lipoprotein metabolism, unspecified Morbid (severe) obesity due to excess calories ([facility] V24, [facility] V28) Bariatric surgery status VITAMIN B12 Routine 06/23/2025 3:18 PM EDT Other hemoglobinopathies ([facility] V24) Encounter for screening for diabetes mellitus Other iron deficiency anemias Vitamin deficiency, unspecified Vitamin D deficiency, unspecified Disorder of thyroid, unspecified Disorder of lipoprotein metabolism, unspecified Morbid (severe) obesity due to excess calories ([facility] V24, [facility] V28) Bariatric surgery status VITAMIN D 1,25 DIHYDROXY Routine 06/23/2025 3:18 PM EDT Other hemoglobinopathies ([facility] V24) Encounter for screening for diabetes mellitus Other iron deficiency anemias Vitamin deficiency, unspecified Vitamin D deficiency, unspecified Disorder of thyroid, unspecified Disorder of lipoprotein metabolism, unspecified Morbid (severe) obesity due to excess calories ([facility] V24, [facility] V28) Bariatric surgery status IRON AND TIBC Routine 06/23/2025 3:18 PM EDT Other hemoglobinopathies ([facility] V24) Encounter for screening for diabetes mellitus Other iron deficiency anemias Vitamin deficiency, unspecified Vitamin D deficiency, unspecified Disorder of thyroid, unspecified Disorder of lipoprotein metabolism, unspecified Morbid (severe) obesity due to excess calories ([facility] V24, [facility] V28) Bariatric surgery status HEMOGLOBIN A1C Routine 06/23/2025 3:18 PM EDT Other hemoglobinopathies ([facility] V24) Encounter for screening for diabetes mellitus Other iron deficiency anemias Disorder of thyroid, unspecified Disorder of lipoprotein metabolism, unspecified Morbid (severe) obesity due to excess calories ([facility] V24, [facility] V28) Bariatric surgery status COMPREHENSIVE METABOLIC PANEL Routine 06/23/2025 3:18 PM EDT Other hemoglobinopathies ([facility] V24) Encounter for screening for diabetes mellitus Other iron deficiency anemias Vitamin deficiency, unspecified Vitamin D deficiency, unspecified Disorder of thyroid, unspecified Disorder of lipoprotein metabolism, unspecified Morbid (severe) obesity due to excess calories ([facility] V24, [facility] V28) Bariatric surgery status CBC AND DIFFERENTIAL Routine 06/23/2025 3:18 PM EDT Other hemoglobinopathies ([facility] V24) Encounter for screening for diabetes mellitus Other iron deficiency anemias Vitamin deficiency, unspecified Vitamin D deficiency, unspecified Disorder of thyroid, unspecified Disorder of lipoprotein metabolism, unspecified Morbid (severe) obesity due to excess calories ([facility] V24, [facility] V28) Bariatric surgery status from Last 3 Months Results * (ABNORMAL) Lipid panel with reflex to direct LDL (06/23/2025 3:18 PM EDT) Cholesterol Total 197 <200 mg/dL [facility] HDL Cholesterol 69 > OR = 50 mg/dL [facility] Triglycerides 63 <150 mg/dL [facility] LDL Cholesterol 113(H) mg/dL (calc) [facility] Comment: Reference range: <100 Desirable range <100 mg/dL for primary prevention; <70 mg/dL for patients with CHD or diabetic patients with > or = 2 CHD risk factors. LDL-C is now calculated using the Aaron-Demarco calculation, which is a validated novel method providing better accuracy than the Friedewald equation in the estimation of LDL-C. Aaron SS et al. KRISHNA. 2013;310(19): 4466-7951 (http://education.DigitalVision/faq/FVP175) Chol/HDLC Ratio 2.9 <5.0 (calc) [facility] Non HDL Cholesterol 128 <130 mg/dL (calc) [facility] Comment: For patients with diabetes plus 1 major ASCVD risk factor, treating to a non-HDL-C goal of <100 mg/dL (LDL-C of <70 mg/dL) is considered a therapeutic option. Blood Venous blood specimen / Unknown 06/23/2025 3:18 PM EDT 06/23/2025 3:18 PM EDT us Juanjo Bender MD LAB BLOOD ORDERABLES Final Re sult [facility] ([facility]) [facility] [address] [place] [address] * CBC auto differential (06/23/2025 3:18 PM EDT) White Blood Cell Count 8.8 3.8 - 10.8 Thousand/u L [facility] RBC Count 4.90 3.80 - 5.10 Million/uL [facility] Hemoglobin 14.4 11.7 - 15.5 g/dL [facility] Hematocrit 44.0 35.0 - 45.0 % [facility] MCV 89.8 80.0 - 100.0 fL [facility] MCH 29.4 27.0 - 33.0 pg [facility] MCHC 32.7 32.0 - 36.0 g/dL [facility] Comment: For adults, a slight decrease in the calculated MCHC value (in the range of 30 to 32 g/dL) is most likely not clinically significant; however, it should be interpreted with caution in correlation with other red cell parameters and the patient's clinical condition. RDW 12.6 11.0 - 15.0 % [facility] Platelet Count 276 140 - 400 Thousand/u L [facility] MPV 11.2 7.5 - 12.5 fL [facility] Absolute Neutrophil 5,051 1,500 - 7,800 cells/uL [facility] Absolute Lymphocytes 2,904 850 - 3,900 cells/uL [facility] Absolute Monocytes 678 200 - 950 cells/uL [facility] Absolute Eosinophils 150 15 - 500 cells/uL [facility] Absolute Basophils 18 0 - 200 cells/uL [facility] Neutrophils 57.4 % [facility] Lymphocytes 33.0 % [facility] Monocytes 7.7 % [facility] Eosinophils 1.7 % [facility] Basophils 0.2 % [facility] Blood Venous blood specimen / Unknown 06/23/2025 3:18 PM EDT 06/23/2025 3:18 PM EDT Juanjo Bender MD LAB BLOOD ORDERABLES Final Re sult Performing Organization Address [facility]/ZIP Co de Phone Number [facility] ([facility] [address] [place] [address] * Iron and TIBC (06/23/2025 3:18 PM EDT) Pathologist [facility] Iron Total 73 45 - 160 mcg/dL [facility] Iron Binding Capacity (TIBC) 298 250 - 450 mcg/dL (calc) [facility] % Saturation 24 16 - 45 % (calc) [facility] Blood Venous blood specimen / Unknown 06/23/2025 3:18 PM EDT 06/23/2025 3:18 PM EDT Juanjo Bender MD LAB BLOOD ORDERABLES Final Re sult Performing Organization Address [facility] Co de Phone Number [employer] [facility] [address] [place] [address] * Vitamin D 1,25 dihydroxy (06/23/2025 3:18 PM EDT) Pathologist [facility] Vitamin D 1,25 Dihydroxy Level 38 18 - 72 pg/mL [facility] Vitamin D3 1,25-Dihydroxy Level 38 pg/mL [facility] Vitamin D2 1,25-Dihydroxy Level <8 pg/mL [facility] Comment: Vitamin D3, 1,25(OH)2 indicates both endogenous production and supplementation. Vitamin D2, 1,25(OH)2 is an indicator of exogenous sources, such as diet or supplementation. Interpretation and therapy are based on measurement of Vitamin D,1,25(OH)2, Total. This test was developed and its analytical performance characteristics have been determined by [email or web address] [facility], [place], [place]. It has not been cleared or approved by the FDA. This assay has been validated pursuant to the CLIA regulations and is used for clinical purposes. Blood Venous blood specimen / Unknown 06/23/2025 3:18 PM EDT 06/23/2025 3:18 PM EDT Juanjo Bender MD LAB BLOOD ORDERABLES Final Re sult Performing Organization Address [facility]/ZIP Co de Phone Number [employer] [facility] ([place]) [email or web address] [address] [place] [address] * Thyroid stimulating hormone (06/23/2025 3:18 PM EDT) Thyroid Stimulating Hormone (TSH) 2.25 0.40 - 4.50 mIU/L [facility] Blood Venous blood specimen / Unknown 06/23/2025 3:18 PM EDT 06/23/2025 3:18 PM EDT us Juanjo Bender MD LAB BLOOD ORDERABLES Final Re sult Performing Organization Address [facility] de Phone Number [employer] [facility] ([facility]) [facility] [address] [place] [phone] * Thyroxine free (06/23/2025 3:18 PM EDT) T4 (Thyroxine) Free 1.4 0.8 - 1.8 ng/dL [facility] Blood Venous blood specimen / Unknown 06/23/2025 3:18 PM EDT 06/23/2025 3:18 PM EDT Juanjo Bender MD LAB BLOOD ORDERABLES Final Re sult Performing Organization Address [facility] Co de Phone Number [employer] [facility] ([facility]) [facility] [address] [place] [phone] * Hemoglobin A1c (06/23/2025 3:18 PM EDT) [facility] Hemoglobin A1C 5.5 <5.7 % [facility] Comment: For the purpose of screening for the presence of diabetes: <5.7% Consistent with the absence of diabetes 5.7-6.4% Consistent with increased risk for diabetes (prediabetes) > or =6.5% Consistent with diabetes This assay result is consistent with a decreased risk of diabetes. Currently, no consensus exists regarding use of hemoglobin A1c for diagnosis of diabetes in children. According to [place] Diabetes Association (ADA) guidelines, hemoglobin A1c <7.0% represents optimal control in non- diabetic patients. Different metrics may apply to specific patient populations. Standards of Medical Care in Diabetes(ADA). Blood Venous blood specimen / Unknown 06/23/2025 3:18 PM EDT 06/23/2025 3:18 PM EDT Juanjo Bender MD LAB BLOOD ORDERABLES Final Re sult Performing Organization Address [facility] Co de Phone Number [employer] [facility] ([facility]) [facility] [address] [place] [phone] * Vitamin B12 (06/23/2025 3:18 PM EDT) [facility] Vitamin B12 613 200 - 1,100 pg/mL [facility] Blood Venous blood specimen / Unknown 06/23/2025 3:18 PM EDT 06/23/2025 3:18 PM EDT Juanjo Bender MD LAB BLOOD ORDERABLES Final Re sult Performing Organization Address [facility] Co de Phone Number [employer] [facility] ([facility]) [facility] [address] [place] [phone] * Comprehensive metabolic panel (06/23/2025 3:18 PM EDT) [facility] Glucose 94 65 - 99 mg/dL [facility] Comment: Fasting reference interval Urea Nitrogen (BUN) 14 7 - 25 mg/dL [facility] Creatinine 0.78 0.50 - 1.03 mg/dL [facility] eGFR 89 > OR = 60 mL/min/1 .73m2 [facility] BUN/Creatinine Ratio SEE NOTE: 6 - 22 (calc) [facility] Comment: Not Reported: BUN and Creatinine are within reference range. Sodium 141 135 - 146 mmol/L [facility] Potassium 4.4 3.5 - 5.3 mmol/L [facility] Chloride 104 98 - 110 mmol/L [facility] Carbon Dioxide 28 20 - 32 mmol/L [facility] Calcium 9.5 8.6 - 10.4 mg/dL [facility] Total Protein 6.8 6.1 - 8.1 g/dL [facility] Albumin 4.2 3.6 - 5.1 g/dL [facility] Globulin 2.6 1.9 - 3.7 g/dL (calc) [facility] Albumin/Globulin Ratio 1.6 1.0 - 2.5 (calc) [facility] Bilirubin Total 0.4 0.2 - 1.2 mg/dL [facility] Alkaline Phosphatase 67 37 - 153 U/L [facility] Aspartate aminotransferase (AST) 18 10 - 35 U/L [facility] Alanine Aminotransferase (ALT) 12 6 - 29 U/L [facility] Blood Venous blood specimen / Unknown 06/23/2025 3:18 PM EDT 06/23/2025 3:18 PM EDT us Juanjo Bender MD LAB BLOOD ORDERABLES Final Re sult [facility] ([facility]) [facility] [address] [place] [phone] from Last 3 Months Insurance [employer] Care Teams Anesthesiologist Physician Relationship Specialty Start Date End Date Eulalia Dela Cruz NP [address] [facility] [place] [address] PCP - General 06/20/23
[2025-07-27 04:45] VITALS: BP 140/80; PULSE 73; RESP 18; TEMP 36.8; O2SAT 97
[2025-07-27 04:48] VITALS: BP 140/80; PULSE 73; RESP 18; TEMP 36.8; O2SAT 97
== END 2025-07-27 04:55 | disposition home or self-care (01) ==
PROVIDERS: Emergency Provider Emergency Medicine
DX: S00.93XA Contusion of unspecified part of head, initial encounter (principal); R51.9 Headache, unspecified; M54.2 Cervicalgia; Y04.2XXA Assault by strike against or bumped into by another person, initial encounter; Y93.9 Activity, unspecified; Y92.9 Unspecified place or not applicable; Y99.0 Civilian activity done for income or pay
CPT/HCPCS: 70450; 72125; 99284

== ENCOUNTER → 2025-07-27 02:30 | Outpatient (BNV) | payer OTHER, SELFPAY | PROVIDERS: Emergency Provider Emergency Medicine; Visit Provider Specialist | DX: T14.8XXA Other injury of unspecified body region, initial encounter (principal); Y09 Assault by unspecified means; Z04.2 Encounter for examination and observation following work accident | CPT/HCPCS: 70450; 72125 ==